=== PATIENT | female | born 1945 | race Caucasian/White ===

== ENCOUNTER 2016-10-19 10:47 | Emergency (ER) | payer OTHER, MEDICARE ==
[~2016-10-19] VITALS: Ht 165.1 cm; Wt 117.9 kg
[~2016-10-19 10:47] MED LIST: A/B OTIC 54 MG/15 ML OT; ARIMIDEX PO; ASPIRIN EC325 MG PO; AUGMENTIN 875 M1 TAB PO; CIPRODEX 0.3%-7.5 ML OTIC; FLECAINIDE ACE100 MG PO; HYDRODIURIL 2525 MG PO; LEVOTHROID0.125 MG PO; LOSARTAN POTAS100 MG PO; PROTONIX 40MG T40 MG PO; SIMVASTATIN20 MG PO
--- NOTE | 2016-10-19 12:18 | ED DYSPNEA/ASTHMA COMPLAINT ---
History of Present Illness General Chief Complaint: Dyspnea (COPD, CHF, Other) Stated Complaint: ? ASTHMA Source: patient Exam Limitations: no limitations Vital Signs & Intake/Output Vital Signs & Intake/Output Vital Signs Date Time Temp Pulse Resp B/P Pulse O2 O2 Flow FiO2 Ox Delivery Rate 10/19 1308 98.8 86 18 143/84 92 Room Air 10/19 1224 90 10/19 1212 92 Room Air Room Air 10/19 1131 91 10/19 1052 97.1 83 14 135/83 91 Room Air Allergies Coded Allergies: MDX - SULFA (sulfonamide) (SULFA (SULFONAMIDE)) (UNKNOWN 04/12/15) MDX - Sulfites (SULFITES) (UNKNOWN 04/12/15) Reconcile Medications AMOXICILLIN/POTASSIUM CLAV (Augmentin 875-125 Tablet) 875 MG/125 MG TAB 1 TAB PO BID OTITIS MEDIA Anastrozole (Arimidex 1MG) 1 MG TABLET 1 TAB PO DAILY UNKNOWN (Reported) Antipyrine/Benzocaine (A/B Otic 54 MG/Ml-14 MG/Ml 15 Ml) 15 ML ESTER 4 GTT OT Q2P PRN EAR PAIN Aspirin E.c. (Ecotrin) 325 MG TAB 1 TAB PO DAILY HEART HEALTH (Reported) Azithromycin (Zithromax) 250 MG TABLET 1 DP PO D asthm CIPROFLOXACIN HCL/DEXAMETH (Ciprodex Otic Suspension) 0.3 %-0.1 % DROPS.SUSP 4 GTT OTIC BID OTITIS EXTERNA Flecainide Acetate 100 MG TAB 1 TAB PO BID HEART (Reported) Hydrochlorothiazide (Hydrodiuril 25 MG Tab) 25 MG TABLET 1 TAB PO DAILY UNKNOWN (Reported) Levothyroxine Sodium (Levothroid) 125 MCG TABLET 175 MCG PO DAILY AC THYROID (Reported) Losartan Potassium 100 MG TABLET 1 TAB PO DAILY BP (Reported) Pantoprazole Sodium (Protonix) 40 MG TABLET.DR 1 TAB PO DAILY GI (Reported) Prednisone 20 MG TABLET 1 TAB PO AD ASTHMA 3 TABS PO DAY 1-2 2 TABS PO DAY 3-5 1 TAB PO DAY 6-8 Simvastatin (Zocor) 20 MG TAB 1 TAB PO QPM CHOLESTEROL (Reported) Triage Note: C/O SOB X 5 DAYS, WORSE TODAY, WITH COUGH DENIES CHEST PAIN. SOB UNRELIEVED BY VENTOLIN INHALER AND PULMONADE TX. Triage Nurses Notes Reviewed? yes HPI: 71-year-old female with shortness of breath and wheezing asthma exacerbation for the last 3 weeks. She had a [address] scan as outpatient by her gear finisher Dr. Florecita Hernandez 4 days ago which I reviewed which did not show any acute abnormalities, she has CT scans every 6 months due to pulmonary nodules. She states that she has been on prednisone 5 mg twice a day without any relief and has been taking her home nebulizer treatments without relief. She is more acutely short of breath today, wheezing, increased respiratory rate and effort. Cough is worsening nonproductive. No fever no flulike illness. She had a sick contact with her grandson a few days ago who came over who had an upper respiratory illness, since then she has had worsening symptoms. She denies any chest pains or palpitations. There is no hemoptysis or leg swelling (MYRA PRIETO) Past History Travel History Traveled to [place] past 21 day No Medical History Any Pertinent Medical History? 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 No (MYRA PRIETO) Review of Systems Review of Systems Constitutional: Reports: see HPI. EENTM: Reports: no symptoms. Respiratory: Reports: see HPI. Cardiovascular: Reports: no symptoms. GI: Reports: no symptoms. Genitourinary: Reports: no symptoms. Musculoskeletal: Reports: no symptoms. Skin: Reports: no symptoms. Neurological/Psychological: Reports: no symptoms. Hematologic/Endocrine: Reports: no symptoms. Immunologic/Allergic: Reports: no symptoms. All Other Systems: Reviewed and Negative (MYRA PRIETO) Physical Exam Physical Exam Respiratory: chest non-tender Comments: Well-developed well-nourished no apparent distress. HEENT: Atraumatic, extraocular motion intact pharynx normal Neck: Supple, no lymphadenopathy Back: Nontender Respiratory: Mild respiratory distress with increased rate and effort. Diffuse rhonchi and wheezing noted bilaterally on inspiratory and expiratory phase. Decreased breath sounds noted. Heart: Regular rate and rhythm no murmur abdomen: Soft nontender nondistended. Extremities: No edema, full range of motion Neuro: Alert and oriented x3 Psych: Mood affect normal, normal memory normal judgment. Skin: Warm and dry, no rash on exposed skin Core Measures ACS in differential dx? No Severe Sepsis Present: No Septic Shock Present: No (MYRA PRIETO) Progress Differential Diagnosis: asthma, AMI, altitude sickness, bronchitis, costochondritis, CHF, COPD, musculoskeletal pain, pericarditis, pulmonary embolism, pneumonia, pneumothorax, rib fracture, unstable angina Plan of Care: Orders Procedure Date/time Status XRY-PORTABLE CHEST XRAY 10/19 1213 Active Diagnostic Imaging: Viewed by Me: Radiology Read. Discussed w/RAD: Radiology Read. CXR Impression: no acute abnormality, no infiltrates Initial ED EKG: none Rhythm Strip: normal sinus rhythm (89 BPM) Comments: Patient with an asthma exacerbation. I reviewed her old records and 4 days ago she had a CT scan which was unremarkable. I will obtain a chest x-ray today as her symptoms are worsening. She was given a DuoNeb treatment and upon reevaluation she is feeling better although she continues to have wheezing. A second albuterol treatment was given. She was also given 60 of prednisone by mouth and 500 of Zithromax by mouth. We will continue to monitor her. Upon another reevaluation patient is lying comfortably in the stretcher without any shortness of breath. Her O2 sats on room air is 93-94%. Her lungs have mild diffuse wheezing but no rhonchi. She wished to be discharged home, I explained to her that she will need to return with worsening symptoms and admission is considered. We will continue her with prednisone and Zithromax as outpatient (MYRA PRIETO) Departure Departure Disposition: HOME OR SELF CARE Condition: Stable Clinical Impression Primary Impression: Asthma exacerbation Referrals: AMY WEBER,LYN Morfin (PCP/Family) Additional Instructions: Continue your Xopenex as directed for wheezing. You were given a dose of prednisone and Zithromax(antibiotics) today, prescription for called here pharmacy you may start taking them again tomorrow as directed. Return to the ER with worsening shortness of breath, fever, flulike illness, chest pain or difficulty breathing. Departure Forms: Customer Survey General Discharge Information Prescriptions: Current Visit Scripts Azithromycin (Zithromax) 1 DP PO D #4 TAB Prednisone 1 TAB PO AD #15 TAB 3 TABS PO DAY 1-2 2 TABS PO DAY 3-5 1 TAB PO DAY 6-8 (MYRA PRIETO) PA/MANAGER INDUSTRIAL Co-Sign Statement Statement: ED Attending supervision documentation- x I saw and evaluated the patient. I have also reviewed all the pertinent lab results and diagnostic results. I agree with the findings and the plan of care as documented in the PA's/MANAGER INDUSTRIAL's documentation. [] I have reviewed the ED Record and agree with the PA's/MANAGER INDUSTRIAL's documentation. [] Additions or exceptions (if any) to the PAs/MANAGER INDUSTRIAL's note and plan are summarized below: [] (MIRTHA WEBER,[place]) Critical Care Note Critical Care Note Critical Care Time: 30-74 min (MYRA PRIETO)
[2016-10-19 13:08] VITALS: BP 143/84
--- NOTE | 2016-10-19 13:10 | RADIOLOGY REPORT ---
EXAMINATION: XR PORTABLE CHEST CLINICAL INFORMATION: SOB. Wheezing. COMPARISON: CT chest 03/15/2017 TECHNIQUE: Portable AP view of the chest was obtained. FINDINGS: Both lungs are fairly well-expanded old lungs are fairly well-expanded and clear of acute pneumonic process. Heart size and pulmonary vascularity is normal. No gross bony abnormality seen. IMPRESSION: Unremarkable chest exam. Recently performed CT chest was unremarkable for acute process. There were pulmonary nodules noted.
[2016-10-19] MEDS ORDERED: ZITHROMAX250 M2 PO (13:22)
[2016-10-19] MEDS ORDERED: PREDNISONE20 M1 PO (13:22)
== END 2016-10-19 14:17 ==
LOC: ERH 10:47
DX: J45.901 Unspecified asthma with (acute) exacerbation (principal)
CPT/HCPCS: 1263

== ENCOUNTER 2017-01-17 20:41 | Emergency (ER) | payer OTHER, MEDICARE ==
[~2017-01-17 20:41] MED LIST changes: +PREDNISONE20 M1 PO; +ZITHROMAX250 M2 PO
--- NOTE | 2017-01-17 21:12 | ED AMS/SEIZURE/WEAK/DIZZY ---
History of Present Illness General Chief Complaint: General Adult Stated Complaint: "MY HEAD SPINNING" Source: patient Exam Limitations: no limitations Vital Signs & Intake/Output Vital Signs & Intake/Output Vital Signs Date Time Temp Pulse Resp B/P B/P Pulse O2 O2 Flow FiO2 Mean Ox Delivery Rate 01/17 2151 96 Room Air Room Air 01/17 2145 98.0 72 24 145/65 96 Room Air 01/17 2142 64 142/65 01/17 2139 67 142/65 01/17 2054 98.2 71 16 119/79 94 Room Air ED Intake and Output 01/18 0000 01/17 1200 Intake Total 120 Output Total Balance 120 Intake, Oral 120 Allergies Coded Allergies: sulfite (Severe, ASTHMA FLARE UP 01/17/17) Reconcile Medications Albuterol Sulfate 2.5 MG/3 ML (0.083 %) VIAL.NEB 1 Vial INH/ESTER Q4P PRN ASTHMA (Reported) Albuterol Sulfate (Ventolin Hfa) 90 MCG HFA.AER.AD 2 PUF INH Q4-6 PRN PRN ASTHMA (Reported) Diazepam (Valium) 2 MG TABLET 1 TAB PO BID PRN DIZZINESS Flecainide Acetate 100 MG TAB 1 TAB PO BID HEART (Reported) Hydrochlorothiazide 25 MG TABLET 1 TAB PO DAILY FLUID (Reported) Levothyroxine Sodium 175 MCG TABLET 1 TAB PO DAILY THYROID (Reported) Losartan Potassium 100 MG TABLET 1 TAB PO DAILY B/P (Reported) Meclizine HCl 12.5 MG TABLET 1 TAB PO TID DIZZINESS Metformin HCl 500 MG TABLET 1 TAB PO BID HYPERGLYCEMIA (Reported) Ondansetron (Zofran Odt) 4 MG TAB.RAPDIS 1 TAB PO Q6 PRN NAUSEA Simvastatin (Simvastatin*) 20 MG TABLET 1 TAB PO QPM CHOLESTEROL (Reported) Warfarin Sodium 6 MG TABLET 1 TAB PO DAILY BLOOD THINNER (Reported) Triage Note: TRIAGE; PT TO ED S/P FEELING DIZZY AT 3AM. STATES ROOM WAS SPINNING. DENIES ANY HX OF VERTIGO. DENIES ANY N/V, DNEIES CP/SOB. STATES THE SPINNING OCCURS IF SHE WERE TO LAY DOWN NOW. Triage Nurses Notes Reviewed? yes Onset: Abrupt Duration: SINCE 3 AM Timing: multiple episodes today Injury Environment: home Severity: mild, moderate No Modifying Factors: none Associated Symptoms: DIZZINESS, ROOM SPINNING HPI: This is a 71-year-old female with history of hypertension, status post pituitary removal for Benton's disease who presents here with chief complaint of sudden onset of dizziness and room spinning that woke her from sleep around 3:00 this morning. She states that she had an outpatient ultrasound of her thyroid yesterday. The position of the ultrasound reported to be lying flat with a pillow underneath her neck. She said the position she thinks may have caused the dizziness. Episode this morning lasted for several hours associated with some nausea and some diaphoresis. Mild headache. She took some Tylenol and eventually symptoms on way. She's been feeling on and off dizzy all day today but this evening the symptoms came back stronger. She denies changes in vision, difficult speaking, difficulty swallowing, difficulty in breathing. Denies any extremity weakness numbness or tingling. No history of peripheral vertigo in the past. Past History Travel History Traveled to [place] past 21 day No Medical History Any Pertinent Medical History? 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 No Review of Systems Review of Systems Constitutional: Denies: chills, fever. EENTM: Reports: visual changes. Respiratory: Denies: cough, short of breath. Cardiovascular: Denies: chest pain, palpitations. GI: Denies: abdominal pain, nausea, vomiting. Genitourinary: Reports: no symptoms. Musculoskeletal: Reports: no symptoms. Skin: Reports: no symptoms. Neurological/Psychological: Reports: see HPI (dizziness), headache. Hematologic/Endocrine: Denies: bruising, bleeding, polyuria, polydipsia. Immunologic/Allergic: Denies: splenectomy. All Other Systems: Reviewed and Negative Physical Exam Physical Exam General Appearance: well developed/nourished, alert, awake, anxious, mild distress, moderate distress Head: atraumatic, active bleeding Eyes: Bilateral: normal appearance, PERRL, other (HORIZONTAL NYSTAGMUS). Ears, Nose, Throat: normal pharynx, normal ENT inspection, hearing grossly normal Neck: normal inspection, supple, full range of motion Respiratory: normal breath sounds, chest non-tender, no respiratory distress Cardiovascular: regular rate/rhythm Peripheral Pulses: 2+ radial (R), 2+ radial (L) Gastrointestinal: soft, non-tender Neurologic/Psych: no motor/sensory deficits, awake, alert, oriented x 3 Skin: intact, normal color, warm/dry Core Measures ACS in differential dx? No CVA/TIA Diagnosis: No Severe Sepsis Present: No Septic Shock Present: No Progress Differential Diagnosis: benign positional vertigo, CVA/stroke, CAROTID ARTERY DISECTION Plan of Care: Orders Procedure Date/time Status MISTAKE 01/17 2119 Active TROPONIN LEVEL 01/17 2119 Complete COMPREHENSIVE METABOLIC PANEL 01/17 2119 Complete CBC WITHOUT DIFFERENTIAL 01/17 2119 Complete EKG 01/18 2044 Active Laboratory Tests 01/17/172135: Anion Gap 11, Estimated GFR > 60, BUN/Creatinine Ratio 23.8, Glucose 171 H, Calcium 9.2, Total Bilirubin 0.7, AST 23, ALT 36, Alkaline Phosphatase 50, Troponin I < 0.01, Total Protein 6.7, Albumin 3.9, Globulin 2.8, Albumin/ Globulin Ratio 1.4, CBC w Diff NO MAN DIFF REQ, RBC 4.57, MCV 88.3, MCH 29.2, RDW 14.2, MPV 7.0 L, Gran % 57.5, Lymphocytes % 26.5, Monocytes % 9.8 H, Eosinophils % 5.3 H, Basophils % 0.9, Absolute Granulocytes 3.3, Absolute Lymphocytes 1.5, Absolute Monocytes 0.6, Absolute Eosinophils 0.3, Absolute Basophils 0.1, PUBS MCHC 33.1 01/17/172118: APTT Cancelled Labs, EKG, orthostatics, meclizine ordered. minimal relief after meclizine. IV valium ordered. 12:30 am much better at this time after IV valium. (SEAN WEBER,[place]) Initial ED EKG: NSR Departure Departure Time of Disposition: 38 Disposition: HOME OR SELF CARE Condition: Stable Clinical Impression Primary Impression: Vertigo Referrals: AMY WEBER,LYN Morfin (PCP/Family) Additional Instructions: Take the meclizine, Zofran and Valium as directed. Please follow up with her primary care doctor listed. Return to the ER as needed. Departure Forms: Customer Survey General Discharge Information Prescriptions: Current Visit Scripts Ondansetron (Zofran Odt) 1 TAB PO Q6 PRN NAUSEA #10 TAB Meclizine HCl 1 TAB PO TID #30 TAB Diazepam (Valium) 1 TAB PO BID PRN DIZZINESS #4 TAB
[2017-01-17 21:45] LABS: ABSOLUTE BASOPHIL COUNT 0.1 /CUMM (0.0-0.2); ABSOLUTE EOSINOPHIL COUNT 0.3 /CUMM (0.0-0.7); ABSOLUTE GRANULOCYTE CT 3.3 /CUMM (1.4-6.5); ABSOLUTE LYMPH COUNT 1.5 /CUMM (1.2-3.4); ABSOLUTE MONOCYTE COUNT 0.6 /CUMM (0.10-0.60); BASOPHIL % 0.9 % (0.0-2.0); EOSINOPHIL % 5.3 % (0-5); GRANULOCYTE % 57.5 % (42.2-75.2); HEMATOCRIT 40.3 % (37-47); MEAN CORPUSCULAR HGB 29.2 PG (27.0-31.0); MEAN CORPUSCULAR HGB CONC 33.1 G/DL (33.0-37.0); MEAN CORPUSCULAR VOLUME 88.3 FL (81.0-99.0); PLATELET COUNT 265 /CUMM (130-400); RBC DISTRIBUTION WIDTH 14.2 % (11.5-14.5); RED BLOOD CELL CT 4.57 /CUMM (4.20-5.40); WHITE BLOOD CELL COUNT 5.7 /CUMM (4.8-10.8)
[2017-01-17] MEDS ORDERED: LEVOTHYROXINE175 MCG PO (21:53)
[2017-01-17] MEDS ORDERED: METFORMIN HCL500 M3 PO (21:54)
[2017-01-17] MEDS ORDERED: SIMVASTATIN20 M2 PO (21:54)
[2017-01-17] MEDS ORDERED: LOSARTAN POTAS100 M1 PO (21:54)
[2017-01-17] MEDS ORDERED: WARFARIN SODIUM6 M1 PO (21:54)
[2017-01-17] MEDS ORDERED: HYDROCHLOROTHIA25 M1 PO (21:54)
[2017-01-17] MEDS ORDERED: ALBUTEROL2.5 MG/3 M INH/SOL (21:55)
[2017-01-17] MEDS ORDERED: VENTOLIN HFA18 GM INH (21:57)
[2017-01-18] MEDS ORDERED: MECLIZINE HCL12.5 M1 PO ×2 (00:41→00:43)
[2017-01-18] MEDS ORDERED: VALIUM2 M1 PO ×2 (00:41→00:43)
[2017-01-18] MEDS ORDERED: ZOFRAN ODT4 M1 PO ×2 (00:41→00:43)
[2017-01-18 01:00] VITALS: BP 138/85
== END 2017-01-18 01:00 ==
LOC: ERH 20:41
PROVIDERS: Emergency Medicine
DX: R42 Dizziness and giddiness (principal); I48.91 Unspecified atrial fibrillation; J45.909 Unspecified asthma, uncomplicated
CPT/HCPCS: 93005; 93010; 96374; 96375; J2405; J3360

== ENCOUNTER 2017-12-21 14:32 | Emergency (ER) | payer OTHER, MEDICARE ==
[~2017-12-21] VITALS: Ht 165.1 cm; Wt 111.1 kg
[~2017-12-21 14:32] MED LIST changes: +ALBUTEROL2.5 MG/3 M INH/SOL; +HYDROCHLOROTHIA25 M1 PO; +LEVOTHYROXINE175 MCG PO; +LOSARTAN POTAS100 M1 PO; +MECLIZINE HCL12.5 M1 PO; +METFORMIN HCL500 M3 PO; +SIMVASTATIN20 M2 PO; +VALIUM2 M1 PO; +VENTOLIN HFA18 GM INH; +WARFARIN SODIUM6 M1 PO; +ZOFRAN ODT4 M1 PO
[2017-12-21 15:01] VITALS: BP 128/81
--- NOTE | 2017-12-21 16:34 | ED NECK/BACK PAIN COMPLAINT ---
History of Present Illness General Chief Complaint: Neck/Upper Back Pain/Injury Stated Complaint: NECK PAIN X 3DAYS Source: patient Exam Limitations: no limitations Vital Signs & Intake/Output Vital Signs & Intake/Output Vital Signs Date Time Temp Pulse Resp B/P B/P Pulse O2 O2 Flow FiO2 Mean Ox Delivery Rate 12/21 1501 96.0 71 18 128/81 96 Room Air Allergies Coded Allergies: No Known Allergies (09/16/17) Reconcile Medications Albuterol Sulfate 2.5 MG/3 ML (0.083 %) VIAL.NEB 1 Vial INH/ESTER Q4P PRN ASTHMA (Reported) Albuterol Sulfate (Ventolin Hfa) 90 MCG HFA.AER.AD 2 PUF INH Q4-6 PRN PRN ASTHMA (Reported) Diazepam (Valium) 2 MG TABLET 1 TAB PO BID PRN DIZZINESS Diazepam (Valium) 2 MG TABLET 1 TAB PO BID PRN pain Flecainide Acetate 100 MG TAB 1 TAB PO BID HEART (Reported) Hydrochlorothiazide 25 MG TABLET 1 TAB PO DAILY FLUID (Reported) Ibuprofen 600 MG TABLET 1 TAB PO TID PRN pain with food Levothyroxine Sodium 175 MCG TABLET 1 TAB PO DAILY THYROID (Reported) Losartan Potassium 100 MG TABLET 1 TAB PO DAILY B/P (Reported) Meclizine HCl 12.5 MG TABLET 1 TAB PO TID DIZZINESS Metformin HCl 500 MG TABLET 1 TAB PO BID HYPERGLYCEMIA (Reported) Ondansetron (Zofran Odt) 4 MG TAB.RAPDIS 1 TAB PO Q6 PRN NAUSEA Simvastatin (Simvastatin*) 20 MG TABLET 1 TAB PO QPM CHOLESTEROL (Reported) Warfarin Sodium 6 MG TABLET 1 TAB PO DAILY BLOOD THINNER (Reported) Triage Note: PT TO ER C/C RIGHT SIDED NECK PAIN RADIATING TO SHOULDER X 3 DAYS, FIRST NOTICED WHEN WAKING UP. TRIED HEAT/ICE WITHOUT RELIEF. TOOK TRAMADOL AT 1100 WITHOUT RELIEF. Triage Nurses Notes Reviewed? yes Onset: Abrupt Duration: day(s): (3), constant Timing: recent history Quality/Severity: moderate Location: paraspinous muscles Radiation: none Method of Injury: unknown Loss of Consciousness: no loss of consciousness Associated Symptoms: muscle spasm HPI: 72-year-old female history of A. fib on Coumadin asthma presents to the ER combining of right-sided neck pain rating to the back of her head and upper back for the past 3 days. She denies any associated chest pain shortness of breath. No recent trauma or injury the pain is nonradiating otherwise down her arm no numbness no tingling. She's been taking tramadol without improvement as well as an old prescription of Flexeril. She is comes sharp 1010. Symptoms came on when she woke up 3 days ago. She reports history of similar episodes on the past which time they resolved on their own. No dizziness lightheadedness blurry vision chest pain shortness of breath (Claudio Padgett) Past History Travel History Traveled to [place] past 21 day No Medical History Any Pertinent Medical History? 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 No (Claudio Padgett) Review of Systems Review of Systems Constitutional: Reports: see HPI. Comments Review of systems: See HPI, All other systems negative. Constitutional, no chills no fever, no malaise HEENT: no sore throat no congestion, no ear pain Cardiovascular: No chest pain , no palpitation Skin: no rashes, no change in skin Respiratory: No dyspnea no cough no sputum GI: No nausea no vomiting, no diarrhea, Muscle skeletal: see hpi Neurologic: , no headache Heme/endocrine: No bruising Immunology: No lymphadenopathy (Claudio Padgett) Physical Exam Physical Exam General Appearance: well developed/nourished, no apparent distress, alert, awake Neck: normal inspection, supple Comments: Well-developed well-nourished patient in no apparent distress. HEENT: Atraumatic, extraocular motion intact Neck: Supple, FROM,no midline tenderness, r paracervical tenderness rad into r occiput and r uppper back, no rash,no bruit Back: FROM nontender Cardiovascular: Regular rate and rhythms no murmur Respiratory: \ No respiratory distress. Patient speaking in full complete sentences. Breath sounds clear to auscultation bilaterally: NO W/R/R Shoulder: Atraumatic/Stable. FROM pain in the neck and upper back is reproducible with range of motion of the right shoulder Elbow: Atraumatic/stable. FROM. No laxity Upper arm/Forearm: Atraumatic. Nontender. No edema, 5 out of 5 shower doors and panels fabricator strength noted to bilateral upper extremities Hand/Wrist: Atraumatic/stable. Skin intact. FROM Pulses: Normal/equal radial pulses bilaterally. Brisk cap refill Lower Extremities: full range of motion Neuro: awake, alert, and oriented to person, place and time. There were no obvious focal neurologic abnormalities. Skin: Warm & dry;No appreciable rash on exposed skin Psych: Mood affect normal, normal memory normal judgment. Core Measures CVA/TIA Diagnosis: No (Claudio Padgett) Progress Differential Diagnosis: C spine injury, carotid dissection, herniated disc, myofascial strain, spinal cord inj, strain, torticollis Plan of Care: Symptoms are reproducible with movement of the right arm and palpation over the paraspinal muscles of the upper back and cervical spine radiating into her head, the patient has no neurologic deficits strength is intact I discussed the plan of care I do not believe imaging is required at this time there is no recent trauma or fall they are in agreement with plan and no need for imaging at this time. They'll follow up with her primary care physician tomorrow. (Claudio Padgett) Departure Departure Time of Disposition: 1655 Disposition: HOME OR SELF CARE Condition: Stable Clinical Impression Primary Impression: Torticollis Referrals: Venecia WEBER,Darion Morfin (PCP/Family) Additional Instructions: follow up with dr dubois tomorrow. interchange tylenol and ibuprofen. valium as discussed-this may make you drowsy. interchange ice and heat. returnwith any concerns Departure Forms: Customer Survey General Discharge Information Prescriptions: Current Visit Scripts Ibuprofen 1 TAB PO TID PRN pain #30 TAB with food Diazepam (Valium) 1 TAB PO BID PRN pain #10 TAB (Claudio Padgett) PA/TECHNICAL MARKETING CONSULTANT Co-Sign Statement Statement: ED Attending supervision documentation- x I saw and evaluated the patient. I have also reviewed all the pertinent lab results and diagnostic results. I agree with the findings and the plan of care as documented in the PA's/TECHNICAL MARKETING CONSULTANT's documentation. [] I have reviewed the ED Record and agree with the PA's/TECHNICAL MARKETING CONSULTANT's documentation. [] Additions or exceptions (if any) to the PAs/TECHNICAL MARKETING CONSULTANT's note and plan are summarized below: [] (Fernando WEBER,[place])
[2017-12-21] MEDS ORDERED: IBUPROFEN600 M1 PO (16:57)
[2017-12-21] MEDS ORDERED: VALIUM2 M1 PO (16:57)
== END 2017-12-21 17:15 ==
LOC: ERH 14:32
DX: M43.6 Torticollis (principal)